=== PATIENT | male | born 1995 | race African-American/Black ===

== ENCOUNTER → 2020-02-10 | Outpatient (REF) | payer OTHER | LOC: M LAB REF 22:25 | PROVIDERS: ATTEND Physician Assistant Medical | DX: R05 Cough (principal) ==

== ENCOUNTER 2021-01-05 22:26 | Emergency (ER) | payer OTHER ==
[~2021-01-05] VITALS: Ht 185.4 cm; Wt 170.4 kg
[2021-01-05 22:27] VITALS: BP 152/77
[2021-01-05] MEDS ORDERED: ACET-841 PO (22:36)
[2021-01-05] MEDS ORDERED: KETOROLAC 30 MG/ML 1ML VIAL IM ONE (23:00)
[2021-01-05] MEDS ORDERED: KETO10TAB PO (23:34)
[2021-01-05] MEDS ORDERED: CYCL-707 PO (23:34)
== END 2021-01-05 23:38 | disposition home or self-care (01) ==
LOC: M ED 22:26
DX: S39.012A Strain of muscle, fascia and tendon of lower back, initial encounter (principal); X58.XXXA Exposure to other specified factors, initial encounter; Y92.018 Other place in single-family (private) house as the place of occurrence of the external cause
CPT/HCPCS: 96372; 99282; J1885

== ENCOUNTER → 2021-02-20 | Outpatient (REF) ==
[~2021-02-20] MED LIST: ACET-841 PO; CYCL-707 PO; KETO10TAB PO
== END ==
LOC: M LABSMTC 13:36
PROVIDERS: ATTEND Pediatrics
DX: Z11.52 Encounter for screening for COVID-19 (principal)

== ENCOUNTER 2021-06-23 08:35 | Inpatient (IN) | payer OTHER ==
[~2021-06-23] VITALS: Ht 188 cm; Wt 168.0 kg
[2021-06-23] MEDS ORDERED: ACETAMINOPHEN 325 MG TAB PO ONE (10:00)
[2021-06-23] MEDS ORDERED: NS 1,000 ML IV ONE (10:10)
[2021-06-23 10:27] LABS: RSV AMPLIFICATION NEGATIVE (NEGATIVE)
--- NOTE | 2021-06-23 10:33 | REP ---
INDICATION: Coronavirus workup. COMPARISON: None. TECHNIQUE: Upright AP portable chest image was obtained. FINDINGS: There is bilateral peribronchial and peripheral airspace consolidation, consistent with COVID related pneumonia. There are no pleural effusions. The heart borders and mediastinum are normal. IMPRESSION: Appearance consistent with viral pneumonia, COVID related pneumonia not excluded. <Electronically signed by Chas Collado > 06/23/21 102
[2021-06-23] MEDS ORDERED: HOME MED LIST COMPLETE! XX SCH (10:35)
[2021-06-23 11:32] LABS: BASO % 0.3 % (0.0-1.0); HEMATOCRIT 47.9 % (42.0-52.0); LYMPH # 0.6 10^3/uL (1.5-5.0); LYMPH % 16.8 % (24.0-44.0); MEAN CORPUSCULAR HEMOGLOBIN 27.2 pg (27.0-33.0); MEAN CORPUSCULAR HGB CONC 33.4 g/dl (32.0-36.5); MEAN CORPUSCULAR VOLUME 81.3 fl (80.0-96.0); MONO # 0.2 10^3/uL (0.0-0.8); MONO % 6.7 % (2.0-8.0); NEUTROPHILS # 2.7 10^3/uL (1.5-8.5); NEUTROPHILS % 75.9 % (36.0-66.0); PLATELET COUNT, AUTOMATED 158 10^3/uL (150-450); RED BLOOD COUNT 5.89 10^6/uL (4.30-6.10); WHITE BLOOD COUNT 3.6 10^3/uL (4.0-10.0)
[2021-06-23 11:44] LABS: INR 1.02; PROTHROMBIN TIME 13.8 SECONDS (12.7-14.5)
[2021-06-23 11:48] LABS: D-DIMER QUANT 1168.77 ng/ml (<500)
[2021-06-23 12:57] LABS: ALBUMIN 3.2 GM/DL (3.2-5.2); ALT/SGPT 131 U/L (12-78); BILIRUBIN,TOTAL 0.6 MG/DL (0.2-1.0); BLOOD UREA NITROGEN 11 MG/DL (7-18); C REACTIVE PROTEIN QUANTITATIV 5.15 MG/DL (0.00-0.30); CALCIUM LEVEL 8.2 MG/DL (8.5-10.1); CARBON DIOXIDE LEVEL 24 MEQ/L (21-32); CHLORIDE LEVEL 102 MEQ/L (98-107); CK-MB VALUE MASS < 1.0 NG/ML (<3.6); CPK CREATINE PHOSPHOKINASE 677 U/L (39-308); CREATININE FOR GFR 1.06 MG/DL (0.70-1.30); FERRITIN 2847 NG/ML (26-388); GLOMERULAR FILTRATION RATE > 60.0 (>60); GLUCOSE, FASTING 132 MG/DL (70-100); LDH LACTATE DEHYDROGENASE 773 U/L (87-241); MAGNESIUM LEVEL 2.2 MG/DL (1.8-2.4); MB/CK RELATIVE INDEX 0.15 (< OR =4); POTASSIUM SERUM 3.5 MEQ/L (3.5-5.1); SODIUM LEVEL 134 MEQ/L (136-145); TOTAL PROTEIN 7.3 GM/DL (6.4-8.2); TROPONIN I < 0.02 NG/ML (< 0.10)
[2021-06-23] MEDS ORDERED: IBUPROFEN 800 MG TAB PO ONE (13:25)
[2021-06-23] MEDS ORDERED: ISOVUE-370 76% 100ML VIAL As Ordered ONE (14:30)
--- NOTE | 2021-06-23 15:14 | REP ---
INDICATION: sob, covid. COMPARISON: Chest radiograph today. TECHNIQUE: CT angiogram chest performed following the intravenous administration of 100 cc of Isovue 370. Sagittal and coronal reconstruction images are performed. FINDINGS: Lungs: Scattered patchy infiltrates are seen diffusely bilaterally. Mediastinum: No adenopathy. Pulmonary arteries: No gross evidence of pulmonary embolism. Evaluation for pulmonary emboli is limited due to patient motion. Chioma: No adenopathy. Axilla: No adenopathy. Pleura: No effusion. Heart: Not enlarged. Thoracic aorta: No aneurysm or dissection. Upper abdominal structures: Unremarkable. Visualized osseous structures: Unremarkable. IMPRESSION: No definite CT evidence of pulmonary embolism. Evaluation for pulmonary emboli is limited due to patient motion. Diffuse patchy bilateral infiltrates. <Electronically signed by Billy Lacy > 06/23/21 [id number]
[2021-06-23] MEDS: NS 1,000 ML IV SCH ×2 (18:09→21:07)
[2021-06-23] MEDS: dexameTHASONE 4 MG/ML 1ML VIAL (J1100 PER 1MG) IV SCH (18:09)
[2021-06-23 19:02] LABS: CREATININE FOR GFR 1.04 MG/DL (0.70-1.30); GLOMERULAR FILTRATION RATE > 60.0 (>60)
--- NOTE | 2021-06-23 19:23 | HPEPDOC ---
General Date of Admission Jun 23, 2021 at 16:56 Date of Service: Jun 23, 2021 Other Providers No PCP Attending Physician: Shane Raphael MD Chief Complaint The patient is a 25-year-old male admitted with a reason for visit of COVID. Source: Patient History of Present Illness 2 weeks ago his girlfriend, whom he lives with, was found to be COVID positive. It sounds as if she had a relatively benign course. About a week ago he started to have clear rhinorrhea and a loss of his sense of taste. He went on to have diarrhea chills and more recently he has been short of breath and has dizziness when he stands. As these symptoms are progressive he came to the emergency room department for further evaluation and treatment. Relevantly, his mother of COVID-19 about 4 months ago in February 2021. He has not been vaccinated. Home Medications Scheduled PRN Acetaminophen (Acetaminophen) 500 Mg Tablet, 1,000 MG PO Q6H PRN for FEVER, (Reported) Allergies Coded Allergies: No Known Allergies (Unverified , 01/05/21) Past Medical History Medical History Morbid obesity, no other known other known medical problems Surgical History ACL repair of his left knee (2008) Family History He does not know much about his father's health. His mother of COVID-19 in February 2021 she was known to have multiple other comorbid medical conditions. He has a brother with no known medical problems. He has 4 sisters with no known medical problems. He has 3 daughters with no known medical problems. Social History * Smoker: Denies Alcohol: Denies He graduated high school. 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 He has to go up and down stairs between the bedroom and bathroom in his house. A-FIB/CHADSVASC A-FIB History Current/History of A-Fib/PAF?: No Current PO Anticoag Therapy: No Review of Systems Constitutional: Reports: Chills, Fever, Malaise ENT: Reports: Head Aches; Denies: Ear Pain, Dysphagia Skin: Denies: Rash, Lesions Pulmonary: Reports: Dyspnea; Denies: Cough Cardiovascular: Denies: Chest Pain, Palpitations, Orthopnea, Edema Gastrointestinal: Reports: Nausea, Vomiting, Diarrhea; Denies: Abdominal Pain, Melena, Hematochezia Genitourinary: Denies: Dysuria, Hematuria Hematologic: Denies: Bruising, Bleeding Excessively, Enlarged Lymph Nodes Endocrine: Denies: Polydipsia, Polyphagia, Polyuria, Heat Intolerance, Cold Intolerance Neurological: Denies: Weakness, Numbness, Change in speech, Confusion Psych: Reports: Anxiety (given the fact that his mother of this 4 months ago); Denies: Depression, Memory Issues Physical Examination General Exam: Positive: Alert, Cooperative (laying in the ER stretcher when I entered the room), No Acute Distress (he appears unwell but is not in distress) Eye Exam: Positive: PERRLA, Conjunctiva & lids normal, EOMI; Negative: Sclera icteric ENT Exam: Positive: Atraumatic, Mucous membr. moist/pink, Pharynx Normal, Tongue Midline Neck Exam: Positive: Supple; Negative: Lymphadenopathy Chest Exam: Positive: Normal air movement, Rales (very few occasional crackles noted throughout the posterior lung lowry); Negative: Wheezing Heart Exam: Positive: Tachycardic, Regular Rhythm, Normal S1, Normal S2; Negative: Murmurs, Rubs Telemetry: Positive: Tachycardia (sinus tach at a rate of [id number]) Abdomen Exam: Positive: Normal bowel sounds, Soft, Other (abdomen is obese which limits the examination); Negative: Tenderness, Hepatospenomegaly Extremity Exam: Positive: Normal pulses; Negative: Edema Skin Exam: Positive: Nl turgor and temperature; Negative: Lesion Neuro Exam: Positive: Normal Speech, Normal Tone Psych Exam: Positive: Mental status NL, Anxiety, Oriented x [address] angiogram of the chest IMPRESSION: No definite CT evidence of pulmonary embolism. Evaluation for pulmonary emboli is limited due to patient motion. Diffuse patchy bilateral infiltrates. Vital Signs Vital Signs Date Time Temp Pulse Resp B/P (MAP) Pulse Ox O2 Delivery O2 Flow Rate FiO2 06/23/21 18:17 99.9 151 18 124/72 (89) 91 Room Air Laboratory Data Labs 24H Laboratory Tests 2 06/23/21 09:41: Coronavirus (COVID-19)(PCR) POSITIVEA, Influenza Type A (RT-PCR) NEGATIVE, Influenza Type B (RT-PCR) NEGATIVE, Respiratory Syncytial Virus (PCR) NEGATIVE 06/23/21 10:38: POC pH (Misc Panel) 7.485H, POC Base Excess (Misc Panel) 0.0, POC Saturated Perc ent O2 (Misc) 94L, POC pO2 (Misc Panel) 65.0L, POC pCO2 (Misc Panel) 31.0L, POC HCO3 (Misc Panel) 23.4, POC Total CO2 (Misc Panel) 24.0 06/23/21 11:16: Immature Granulocyte % (Auto) 0.3, Neutrophils (%) (Auto) 75.9H, Lymphocytes (%) (Auto) 16.8L, Monocytes (%) (Auto) 6.7, Eosinophils (%) (Auto) 0.0, Basophils (%) (Auto) 0.3, Neutrophils # (Auto) 2.7, Lymphocytes # (Auto) 0.6L, Monocytes # (Auto) 0.2, Eosinophils # (Auto) 0.0, Basophils # (Auto) 0.0, Nucleated Red Blood Cells % (auto) 0.0, Prothrombin Time 13.8, Prothromb Time International Ratio 1.02, Activated Partial Thromboplast Time 34.0, Fibrinogen 489H, D-Dimer, Quantitative 1168.77H, Anion Gap 8, Glomerular Filtration Rate > 60.0, Lactic Acid Level 1.0, Calcium Level 8.2L, Magnesium Level 2.2, Ferritin 2847H, Total Bilirubin 0.6, Aspartate Amino Transf (AST/SGOT) 157H, Alanine Aminotransferase (ALT/SGPT) 131H, Alkaline Phosphatase 51, Lactate Dehydrogenase 773H, Total Creatine Kinase 677H, Creatine Kinase MB < 1.0, Creatine Kinase MB Relative Index 0.15, Troponin I < 0.02, C-Reactive Protein, Quantitative 5.15H, Total Protein 7.3, Albumin 3.2, Albumin/Globulin Ratio 0.8, Procalcitonin 0.54 06/23/21 18:32: D-Dimer, Quantitative 1426.58H, Glomerular Filtration Rate > 60.0 CBC/BMP Laboratory Tests 06/23/21 11:16 06/23/21 18:32 Microbiology Microbiology 06/23/21 Blood Culture, Received Pending 06/23/21 Blood Culture, Received Pending Problems (1) COVID Status: Acute Problem Text: I will admit him to the COVID floor using the COVID protocol. I've prescribed remdesivir and dexamethasone. We'll monitor with labs per the COVID protocol. (2) Tachycardia Status: Acute Problem Text: Initially I was concerned about his tachycardia. I thought it may indicate an underlying problem like a pulmonary embolism. Since that is negative on CT angiogram, I believe it tachycardia as a combination of: dehydration related to diarrhea and poor intake, physical deconditioning, and anxiety about his clinical situation given the fact that his mother of this 4 months ago. I am giving him IV hydration. We will continue to monitor. Plan / VTE VTE Prophylaxis Ordered?: Yes Plan Plan He identifies his girlfriend, Clara Singh, as his alternate decision maker should he be unable to make his own medical decisions. He wishes to be FULL CODE at this time. Shane Raphael MD Jun 23, 2021 7:23 pm
[2021-06-23 19:35] VITALS: BP 125/81
--- NOTE | 2021-06-23 19:56 | ECGEPIP ---
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
[2021-06-23] MEDS ORDERED: REMDESIVIR 200 MG in NS 250 ML IV ONE (20:00)
[2021-06-23] MEDS: ENOXAPARIN 100MG/1ML SYRINGE (J1650 PER 10MG) SC SCH (21:06)
[2021-06-23] MEDS ORDERED: SODIUM CHLORIDE 0.9% INJ 10 ML SYR IV ONE (22:01)
[2021-06-23 22:19] VITALS: O2SAT 92
[2021-06-24] VITALS (9 sets, daily range): BP systolic 110–143; BP diastolic 60–87; O2SAT 90–93
[2021-06-24] MEDS: ACETAMINOPHEN 500 MG TAB PO PRN ×3 (02:44→20:01)
[2021-06-24] MEDS: NS 1,000 ML IV SCH (06:09)
[2021-06-24 08:15] LABS: HEMATOCRIT 45.2 % (42.0-52.0); HEMOGLOBIN 14.9 g/dl (13.5-17.5); MEAN CORPUSCULAR HEMOGLOBIN 27.2 pg (27.0-33.0); MEAN CORPUSCULAR VOLUME 82.5 fl (80.0-96.0); PLATELET COUNT, AUTOMATED 179 10^3/uL (150-450); RED BLOOD COUNT 5.48 10^6/uL (4.30-6.10); WHITE BLOOD COUNT 3.4 10^3/uL (4.0-10.0)
[2021-06-24] MEDS: ENOXAPARIN 100MG/1ML SYRINGE (J1650 PER 10MG) SC SCH ×2 (08:19→19:56)
[2021-06-24] MEDS: ASPIRIN 81MG ENTERIC TABLET PO SCH (08:19)
[2021-06-24 08:44] LABS: ALBUMIN 2.9 GM/DL (3.2-5.2); ALT/SGPT 120 U/L (12-78); BILIRUBIN,DIRECT 0.2 MG/DL (0.0-0.2); BILIRUBIN,TOTAL 0.4 MG/DL (0.2-1.0); BLOOD UREA NITROGEN 11 MG/DL (7-18); CARBON DIOXIDE LEVEL 25 MEQ/L (21-32); CHLORIDE LEVEL 104 MEQ/L (98-107); GLOMERULAR FILTRATION RATE > 60.0 (>60); GLUCOSE, FASTING 131 MG/DL (70-100); MAGNESIUM LEVEL 1.9 MG/DL (1.8-2.4); POTASSIUM SERUM 3.6 MEQ/L (3.5-5.1); SODIUM LEVEL 140 MEQ/L (136-145); TOTAL PROTEIN 6.8 GM/DL (6.4-8.2)
[2021-06-24 09:07] LABS: ATYPICAL LYMPH 5 % (0-5); LYMPHOCYTES 22 % (16-44); MONOCYTES 3 % (0-5); NEUTROPHILS 70 % (28-66)
[2021-06-24 09:08] LABS: PLATELET ESTIMATE NORMAL (NORMAL)
[2021-06-24] MEDS: cefTRIAXone SOD 2 GM in D5W MINI-BAG PLUS 50 ML IV SCH (12:20)
[2021-06-24] MEDS: LACTOBACILLUS ACIDOPHILUS CAP (BACID) PO SCH ×2 (13:04→17:35)
--- NOTE | 2021-06-24 13:21 | IPN ---
PROGRESS NOTE DATE: 06/24/2021 Patient denies any shortness of breath, dyspnea on exertion, chest pain, pressure, or tightness, nausea, vomiting, anosmia, dysacusia, abdominal pain, diarrhea, constipation. Despite tachycardia and low-grade temperature, patient denies any dizziness, lightheadedness, cough productive of sputum. Temperature 99.8, maximum temperature 100.4, respiratory rate 19, blood pressure 143/83, 89% on room air. GENERAL: Awake, alert, oriented to person, place, and time. No distress. LUNGS: Diminished with bilateral crackles. No wheezing. Air entry is diminished. HEART: S1, S2, sinus tachycardia. ABDOMEN: Obese, soft, nontender, nondistended. EXTREMITIES: No cyanosis, clubbing, or pitting edema. LABORATORY DATA: CBC, metabolic panel, microbiology, and imaging studies have been reviewed. ASSESSMENT AND PLAN: A 25-year-old obese male with body mass index (BMI) 48.5, admitted on 06/23/2021 due to complaints of diarrhea, chills, and shortness of breath with dizziness when he stands. Patient was found to be positive for coronavirus and treated with intravenous (IV) remdesivir, Decadron, Lovenox. CT chest showed bilateral infiltrates with persistent low-grade temperature is 100.4, procalcitonin of 0.5. Patient is now being given secondary bacterial coverage with antibiotics. CURRENT ISSUES: Coronavirus positive/pneumonia. Patient is continued on Decadron, remdesivir, supplemental oxygen to keep saturations above 90%, aspirin 81 mg daily, and Lovenox 1 mg/kg subcutaneous every 12. Intravenous (IV) fluids will be discontinue due to persistent hypoxia and bilateral infiltrates on x-ray to keep euvolemic. Due to procalcitonin of 0.5, patient will be given antibiotics, ceftriaxone, doxycycline, as well as Bacid. MTDD
[2021-06-24] MEDS: DOXYCYCLINE HYCLATE 100 MG in D5W MINI-BAG PLUS 100 ML IV SCH (14:05)
[2021-06-24] MEDS: dexameTHASONE 4 MG/ML 1ML VIAL (J1100 PER 1MG) IV SCH (17:34)
[2021-06-24] MEDS ORDERED: KETOROLAC 30 MG/ML 1ML VIAL IV ONE (18:15)
[2021-06-24] MEDS ORDERED: NS 1,000 ML IV SCH (19:45)
[2021-06-24] MEDS: REMDESIVIR 100 MG in NS 250 ML IV SCH (19:55)
[2021-06-24] MEDS: SODIUM CHLORIDE 0.9% INJ 10 ML SYR IV SCH (20:02)
[2021-06-25] VITALS (8 sets, daily range): BP systolic 108–134; BP diastolic 64–82; O2SAT 92–98
[2021-06-25] MEDS: DOXYCYCLINE HYCLATE 100 MG in D5W MINI-BAG PLUS 100 ML IV SCH ×2 (02:19→13:03)
[2021-06-25 07:36] LABS: HEMATOCRIT 44.8 % (42.0-52.0); MEAN CORPUSCULAR HEMOGLOBIN 27.5 pg (27.0-33.0); MEAN CORPUSCULAR HGB CONC 33.5 g/dl (32.0-36.5); MEAN CORPUSCULAR VOLUME 82.2 fl (80.0-96.0); PLATELET COUNT, AUTOMATED 214 10^3/uL (150-450); RED BLOOD COUNT 5.45 10^6/uL (4.30-6.10); WHITE BLOOD COUNT 3.8 10^3/uL (4.0-10.0)
[2021-06-25 07:38] LABS: INR 1.03; PROTHROMBIN TIME 13.9 SECONDS (12.7-14.5)
[2021-06-25 07:39] LABS: PARTIAL THROMBOPLASTIN TIME 39.4 SECONDS (25.9-37.0)
[2021-06-25 08:12] LABS: ALBUMIN 2.7 GM/DL (3.2-5.2); ALT/SGPT 109 U/L (12-78); BILIRUBIN,DIRECT 0.2 MG/DL (0.0-0.2); BILIRUBIN,TOTAL 0.5 MG/DL (0.2-1.0); BLOOD UREA NITROGEN 12 MG/DL (7-18); CALCIUM LEVEL 8.1 MG/DL (8.5-10.1); CARBON DIOXIDE LEVEL 25 MEQ/L (21-32); CHLORIDE LEVEL 106 MEQ/L (98-107); CPK CREATINE PHOSPHOKINASE 555 U/L (39-308); CREATININE FOR GFR 0.74 MG/DL (0.70-1.30); FERRITIN 3223 NG/ML (26-388); GLOMERULAR FILTRATION RATE > 60.0 (>60); GLUCOSE, FASTING 146 MG/DL (70-100); LDH LACTATE DEHYDROGENASE 1000 U/L (87-241); MAGNESIUM LEVEL 2.2 MG/DL (1.8-2.4); NT-PRO BNP 32 PG/ML (<125); POTASSIUM SERUM 3.5 MEQ/L (3.5-5.1); SODIUM LEVEL 140 MEQ/L (136-145); TROPONIN I < 0.02 NG/ML (< 0.10)
[2021-06-25 08:24] LABS: ATYPICAL LYMPH 1 % (0-5); LYMPHOCYTES 22 % (16-44); MONOCYTES 6 % (0-5); NEUTROPHILS 71 % (28-66)
[2021-06-25 08:25] LABS: PLATELET ESTIMATE NORMAL (NORMAL)
[2021-06-25] MEDS: ASPIRIN 81MG ENTERIC TABLET PO SCH (09:41)
[2021-06-25] MEDS: ENOXAPARIN 100MG/1ML SYRINGE (J1650 PER 10MG) SC SCH ×2 (09:41→20:28)
[2021-06-25] MEDS: LACTOBACILLUS ACIDOPHILUS CAP (BACID) PO SCH ×3 (09:41→17:54)
--- NOTE | 2021-06-25 09:43 | IPNPDOC ---
Date Seen The patient was seen on 06/25/21. Progress Note S; C/O BUSTAMANTE, Febrile yesterday, w/o cough or chlils. Patient denies any chest pain, pressure, or tightness, nausea, vomiting, anosmia, dysacusia, abdominal pain, or , constipation. O: PE Vitals: see below GENERAL: Awake, alert, oriented to person, place, and time. No distress. speaks in full sentences w/o conversational dyspnea HEENT: no jvd moist mm no thyromegaly or jvd LUNGS: Diminished with bilateral crackles. no use of respiratory accessory mm HEART: S1, S2, sinus tachycardia. ABDOMEN: Obese, soft, nontender, nondistended. EXTREMITIES: No cyanosis, clubbing, or pitting edema. LABORATORY DATA: CBC, metabolic panel, microbiology, and imaging studies have been reviewed. ASSESSMENT AND PLAN: A 25-year-old obese male with body mass index (BMI) 48.5, admitted on 06/23/2021 due to complaints of diarrhea, chills, and shortness of breath with dizziness when he stands. Patient was found to be positive for coronavirus and treated with intravenous (IV) remdesivir, Decadron, Lovenox. CT chest showed bilateral infiltrates with persistent low-grade temperature is 100.4, procalcitonin of 0.5. Patient is now being given secondary bacterial coverage with antibiotics. CURRENT ISSUES: Coronavirus pneumonia. continued on Decadron, remdesivir, supplemental oxygen to keep saturations above 90%, aspirin 81 mg daily, and Lovenox 1 mg/kg subcutaneous every 12. Intravenous (IV) fluids will be discontinue due to persistent hypoxia and bilateral infiltrates on x-ray to keep euvolemic. Suspected Secondary Bacterial pneumonia Due to procalcitonin of 0.5, pt was started on ceftriaxone, doxycycline, as well as Bacid on 06/24/21 day# abx Respiratory distress supplemental o2. . VS, I&O, 24H, Fishbone Vital Signs/I&O Vital Signs Date Time Temp Pulse Resp B/P (MAP) Pulse Ox O2 Delivery O2 Flow Rate FiO2 06/25/21 07:31 99.5 117 19 130/76 (94) 96 Nasal Cannula 1.0 I&O- Last 24 Hours up to 6 AM 06/25/21 06:00 Intake Total 3680 ml Output Total 775 ml Balance 2905 ml Laboratory Data 24H LABS Laboratory Tests 2 06/25/21 06:55: Neutrophils (%) (Auto) , Nucleated Red Blood Cells % (auto) 0.0, Neutrophils 71H, Lymphocytes (Manual) 22, Monocytes (Manual) 6H, Atypical Lymphocytes 1, Red Blood Cell Morphology NORMAL, Platelet Estimate NORMAL, Prothrombin Time 13.9, Prothromb Time International Ratio 1.03, Activated Partial Thromboplast Time 39.4H, Fibrinogen 477H, Anion Gap 9, Glomerular Filtration Rate > 60.0, Calcium Level 8.1L, Magnesium Level 2.2, Ferritin 3223H, Total Bilirubin 0.5, Direct Bilirubin 0.2, Aspartate Amino Transf (AST/SGOT) 124H, Alanine Aminotransferase (ALT/SGPT) 109H, Alkaline Phosphatase 46, Lactate Dehydrogenase 1000H, Total Creatine Kinase 555H, Troponin I < 0.02, VS-Ekx-Y-Type Natriuretic Peptide 32, Total Protein 7.0, Albumin 2.7L, Albumin/Globulin Ratio 0.6, Procalcitonin 1.14 CBC/BMP Laboratory Tests 06/25/21 06:55 Microbiology Microbiology 06/23/21 Urine Culture - Final, Complete 06/23/21 Blood Culture - Preliminary, Resulted No growth after 24 hours . All specim... 06/23/21 Blood Culture - Preliminary, Resulted No growth after 24 hours . All specim... RANDY WOODARD MD Jun 25, 2021 09:43
[2021-06-25] MEDS: cefTRIAXone SOD 2 GM in D5W MINI-BAG PLUS 50 ML IV SCH (12:11)
[2021-06-25 14:50] LABS: THYROID STIMULATING HORMONE 0.416 uIU/ML (0.358-3.740)
[2021-06-25] MEDS: ACETAMINOPHEN 500 MG TAB PO PRN (16:33)
[2021-06-25] MEDS: dexameTHASONE 4 MG/ML 1ML VIAL (J1100 PER 1MG) IV SCH (17:54)
[2021-06-25] MEDS: REMDESIVIR 100 MG in NS 250 ML IV SCH (20:28)
[2021-06-25] MEDS ORDERED: NS 1,000 ML IV SCH (20:40)
[2021-06-25 21:44] LABS: MAGNESIUM LEVEL 1.8 MG/DL (1.8-2.4); NT-PRO BNP 26 PG/ML (<125)
[2021-06-25] MEDS: SODIUM CHLORIDE 0.9% INJ 10 ML SYR IV SCH (22:27)
[2021-06-26] VITALS (7 sets, daily range): BP systolic 129–141; BP diastolic 68–86; O2SAT 84–99
[2021-06-26] MEDS: DOXYCYCLINE HYCLATE 100 MG in D5W MINI-BAG PLUS 100 ML IV SCH ×2 (00:17→14:47)
[2021-06-26] MEDS: COMBIVENT RESPIMAT 100-20MCG INHALER 4GM INH PRN ×2 (03:48→08:59)
--- NOTE | 2021-06-26 06:03 | ECGEPIP ---
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
[2021-06-26 06:06] LABS: BASO % 0.2 % (0.0-1.0); HEMATOCRIT 44.9 % (42.0-52.0); HEMOGLOBIN 14.8 g/dl (13.5-17.5); LYMPH # 0.9 10^3/uL (1.5-5.0); LYMPH % 23.1 % (24.0-44.0); MEAN CORPUSCULAR HEMOGLOBIN 27.2 pg (27.0-33.0); MEAN CORPUSCULAR VOLUME 82.5 fl (80.0-96.0); MONO # 0.3 10^3/uL (0.0-0.8); MONO % 7.9 % (2.0-8.0); NEUTROPHILS # 2.8 10^3/uL (1.5-8.5); NEUTROPHILS % 67.8 % (36.0-66.0); PLATELET COUNT, AUTOMATED 161 10^3/uL (150-450); RED BLOOD COUNT 5.44 10^6/uL (4.30-6.10); WHITE BLOOD COUNT 4.1 10^3/uL (4.0-10.0)
[2021-06-26 06:25] LABS: BLOOD UREA NITROGEN 12 MG/DL (7-18); CARBON DIOXIDE LEVEL 27 MEQ/L (21-32); CHLORIDE LEVEL 107 MEQ/L (98-107); CREATININE FOR GFR 0.76 MG/DL (0.70-1.30); GLOMERULAR FILTRATION RATE > 60.0 (>60); GLUCOSE, FASTING 155 MG/DL (70-100); MAGNESIUM LEVEL 2.1 MG/DL (1.8-2.4); POTASSIUM SERUM 3.7 MEQ/L (3.5-5.1); SODIUM LEVEL 141 MEQ/L (136-145)
[2021-06-26] MEDS: ENOXAPARIN 100MG/1ML SYRINGE (J1650 PER 10MG) SC SCH ×2 (08:54→21:25)
[2021-06-26] MEDS: LACTOBACILLUS ACIDOPHILUS CAP (BACID) PO SCH ×3 (08:54→18:24)
[2021-06-26] MEDS: ASPIRIN 81MG ENTERIC TABLET PO SCH (08:54)
[2021-06-26] MEDS: cefTRIAXone SOD 2 GM in D5W MINI-BAG PLUS 50 ML IV SCH (11:53)
--- NOTE | 2021-06-26 12:26 | IPNPDOC ---
Date Seen The patient was seen on 06/26/21. Progress Note S; Patient was tachycardic 140 to 160 bpm with ambulation yesterday with worsening dyspnea on exertion. This morning patient's oxygen saturation decreased down to 86% on 2 L nasal cannula had to be subsequently increased to 5 L nasal cannula he complains of worsening shortness of breath with dry cough O: PE Vitals: see below GENERAL: Awake, alert, oriented to person, place, and time. 8-10 word conversational dyspnea head of bed elevation at 45 degrees HEENT: no jvd moist mm no thyromegaly or jvd LUNGS: Diminished breath sounds with coarse rhonchi bilaterally HEART: S1, S2, sinus tachycardia. ABDOMEN: Obese, soft, nontender, nondistended. EXTREMITIES: No cyanosis, clubbing, or pitting edema. LABORATORY DATA: CBC, metabolic panel, microbiology, and imaging studies have been reviewed. ASSESSMENT AND PLAN: A 25-year-old obese male with body mass index (BMI) 48.5, admitted on 06/23/2021 due to complaints of diarrhea, chills, and shortness of breath with dizziness when he stands. Patient was found to be positive for coronavirus and treated with intravenous (IV) remdesivir, Decadron, Lovenox. CT chest showed bilateral infiltrates with persistent low-grade temperature is 100.4, procalcitonin of 0.5. Patient is now being given secondary bacterial coverage with antibiotics. Acute hypoxic respiratory failure secondary to coronavirus pneumonia and suspected secondary bacterial pneumonia with elevated procalcitonin continued on Decadron, remdesivir, ceftriaxone and doxycycline supplemental oxygen to keep oxygen saturation greater than 94% aspirin 81 mg daily, and Lovenox 1 mg/kg subcutaneous every 12hr Check a stat ABG and chest x-ray to rule out ARDS We had discussed possibility of ICU transfer, Vapotherm, Legal Entity Controller consultation, and prone positioning if needed Continue droplet and contact isolation precautions Coronavirus pneumonia with hypoxia continued on Decadron, remdesivir supplemental oxygen to keep oxygen saturation greater than 94% aspirin 81 mg daily, and Lovenox 1 mg/kg subcutaneous every 12hr Suspected Secondary Bacterial pneumonia Due to procalcitonin of 0.5, pt was started on ceftriaxone, doxycycline, as well as Bacid on 06/24/21 With worsening hypoxia today concerning for early ARDS Obesity BMI 47.8 Check arterial blood gas. URMILA protocol VS, I&O, 24H, Fishbone Vital Signs/I&O Vital Signs Date Time Temp Pulse Resp B/P (MAP) Pulse Ox O2 Delivery O2 Flow Rate FiO2 06/26/21 08:00 98.9 122 20 134/86 (102) 84 High Flow Cannula 8.0 I&O- Last 24 Hours up to 6 AM 06/26/21 06:00 Intake Total 1610 ml Output Total 1750 ml Balance -140 ml Laboratory Data 24H LABS Laboratory Tests 2 06/26/21 05:42: Immature Granulocyte % (Auto) 1.0, Neutrophils (%) (Auto) 67.8H, Lymphocytes (%) (Auto) 23.1L, Monocytes (%) (Auto) 7.9, Eosinophils (%) (Auto) 0.0, Basophils (%) (Auto) 0.2, Neutrophils # (Auto) 2.8, Lymphocytes # (Auto) 0.9L, Monocytes # (Auto) 0.3, Eosinophils # (Auto) 0.0, Basophils # (Auto) 0.0, Nucleated Red Blood Cells % (auto) 0.0, Anion Gap 7L, Glomerular Filtration Rate > 60.0, Calcium Level 8.0L, Magnesium Level 2.1 CBC/BMP Laboratory Tests 06/26/21 05:42 Microbiology Microbiology 06/23/21 Urine Culture - Final, Complete 06/23/21 Blood Culture - Preliminary, Resulted No Growth after 72 hours. All specime... 06/23/21 Blood Culture - Preliminary, Resulted No Growth after 72 hours. All specime... RANDY WOODARD MD Jun 26, 2021 12:26
[2021-06-26] MEDS ORDERED: FUROSEMIDE 40MG/4ML VIAL (J1940) IV ONE (12:40)
--- NOTE | 2021-06-26 12:50 | REP ---
INDICATION: hypoxia covid pneumonia r/o ards. COMPARISON: 06/23/2021. TECHNIQUE: Single portable AP view of the chest was performed. FINDINGS: Diffuse bilateral infiltrates are again noted, essentially unchanged. Lung volumes are mildly diminished compared to the prior study. The heart and mediastinum appear unchanged. IMPRESSION: Diffuse bilateral infiltrates have not significantly changed. There is a lesser degree of ventilation compared to the prior study. <Electronically signed by Billy Lacy > 06/26/21 1973
[2021-06-26 13:24] LABS: D-DIMER QUANT 825.8 ng/ml (<500)
[2021-06-26 13:30] LABS: VENOUS BASE EXCESS -0.1 (-2.0-2.0); VENOUS HCO3 22.7 MEQ/L (23.0-27.0); VENOUS O2 SATURATION 90.6 % (60.0-80.0); VENOUS PARTIAL PRESSURE CO2 32.2 mmHg (38.0-50.0); VENOUS PARTIAL PRESSURE O2 56.3 mmHg (30.0-50.0); VENOUS PH 7.466 UNITS (7.330-7.430); VENOUS STANDARD HCO3 24.2 MEQ/L; VENOUS TOTAL CO2 23.7 MEQ/L (24.0-28.0)
[2021-06-26 13:47] LABS: C REACTIVE PROTEIN QUANTITATIV 4.67 MG/DL (0.00-0.30); CK-MB VALUE MASS < 1.0 NG/ML (<3.6); CPK CREATINE PHOSPHOKINASE 385 U/L (39-308); FERRITIN 2438 NG/ML (26-388); MB/CK RELATIVE INDEX 0.26 (< OR =4); NT-PRO BNP 9 PG/ML (<125); TROPONIN I < 0.02 NG/ML (< 0.10)
[2021-06-26 14:02] LABS: ERYTHROCYTE SEDIMENTATION RATE 22 mm/hr (0-15)
[2021-06-26] MEDS: dexameTHASONE 4 MG/ML 1ML VIAL (J1100 PER 1MG) IV SCH (18:25)
[2021-06-26] MEDS: SODIUM CHLORIDE 0.9% INJ 10 ML SYR IV SCH (21:26)
[2021-06-26] MEDS: REMDESIVIR 100 MG in NS 250 ML IV SCH (21:26)
[2021-06-27] VITALS (8 sets, daily range): BP systolic 129–162; BP diastolic 76–100; O2SAT 94–99
[2021-06-27] MEDS: DOXYCYCLINE HYCLATE 100 MG in D5W MINI-BAG PLUS 100 ML IV SCH (01:54)
[2021-06-27] MEDS: COMBIVENT RESPIMAT 100-20MCG INHALER 4GM INH SCH ×4 (08:07→20:48)
[2021-06-27 08:49] LABS: HEMATOCRIT 47.2 % (42.0-52.0); HEMOGLOBIN 15.5 g/dl (13.5-17.5); MEAN CORPUSCULAR HEMOGLOBIN 27.2 pg (27.0-33.0); MEAN CORPUSCULAR HGB CONC 32.8 g/dl (32.0-36.5); PLATELET COUNT, AUTOMATED 289 10^3/uL (150-450); RED BLOOD COUNT 5.69 10^6/uL (4.30-6.10); WHITE BLOOD COUNT 4.1 10^3/uL (4.0-10.0)
[2021-06-27 09:15] LABS: ERYTHROCYTE SEDIMENTATION RATE 17 mm/hr (0-15)
[2021-06-27 09:28] LABS: ATYPICAL LYMPH 11 % (0-5); LYMPHOCYTES 24 % (16-44); MONOCYTES 2 % (0-5); NEUTROPHILS 63 % (28-66); PLATELET ESTIMATE NORMAL (NORMAL)
[2021-06-27 09:29] LABS: PLATELET CLUMPS SMALL AMT
[2021-06-27 09:35] LABS: ALBUMIN 2.9 GM/DL (3.2-5.2); ALT/SGPT 99 U/L (12-78); BILIRUBIN,DIRECT 0.2 MG/DL (0.0-0.2); BILIRUBIN,TOTAL 0.6 MG/DL (0.2-1.0); BLOOD UREA NITROGEN 18 MG/DL (7-18); C REACTIVE PROTEIN QUANTITATIV 3.11 MG/DL (0.00-0.30); CALCIUM LEVEL 8.6 MG/DL (8.5-10.1); CARBON DIOXIDE LEVEL 28 MEQ/L (21-32); CHLORIDE LEVEL 108 MEQ/L (98-107); CPK CREATINE PHOSPHOKINASE 235 U/L (39-308); CREATININE FOR GFR 0.75 MG/DL (0.70-1.30); FERRITIN 2266 NG/ML (26-388); GLOMERULAR FILTRATION RATE > 60.0 (>60); GLUCOSE, FASTING 143 MG/DL (70-100); INR 1.08; LDH LACTATE DEHYDROGENASE 1077 U/L (87-241); MAGNESIUM LEVEL 2.2 MG/DL (1.8-2.4); NT-PRO BNP 5 PG/ML (<125); POTASSIUM SERUM 3.7 MEQ/L (3.5-5.1); PROTHROMBIN TIME 14.4 SECONDS (12.7-14.5); SODIUM LEVEL 142 MEQ/L (136-145); TROPONIN I < 0.02 NG/ML (< 0.10)
--- NOTE | 2021-06-27 12:01 | IPNPDOC ---
Date Seen The patient was seen on 06/27/21. Progress Note S; Improved oxygen saturation currently room air when the patient is lying down on his stomach he still complains of dyspnea on exertion when going from bed to the bathroom No chest pain fevers or chills Slight cough unchanged No complaints of palpitations lightheadedness or dizziness O: PE Vitals: see below GENERAL: Prone positioning no conversational dyspnea No use of respiratory accessory muscles HEENT: no jvd moist mm no thyromegaly or jvd LUNGS: Diminished breath sounds with coarse rhonchi bilaterally HEART: S1, S2, sinus tachycardia. ABDOMEN: Obese, soft, nontender, nondistended. EXTREMITIES: No cyanosis, clubbing, or pitting edema. LABORATORY DATA: CBC, metabolic panel, microbiology, and imaging studies have been reviewed. ASSESSMENT AND PLAN: A 25-year-old obese male with body mass index (BMI) 48.5, admitted on 06/23/2021 due to complaints of diarrhea, chills, and shortness of breath with dizziness when he stands. Patient was found to be positive for coronavirus and treated with intravenous (IV) remdesivir, Decadron, Lovenox. CT chest showed bilateral infiltrates with persistent low-grade temperature is 100.4, procalcitonin of 0.5. Patient is now being given secondary bacterial coverage with antibiotics. Acute hypoxic respiratory failure, resolving secondary to coronavirus pneumonia and suspected secondary bacterial pneumonia with elevated procalcitonin continued on Decadron, remdesivir, ceftriaxone and doxycycline supplemental oxygen to keep oxygen saturation greater than 94% aspirin 81 mg daily, and Lovenox 1 mg/kg subcutaneous every 12hr ABG unchanged chest x-ray decreased ventilation Improved with prone positioning Now on room air Coronavirus pneumonia with hypoxia continued on Decadron, remdesivir supplemental oxygen to keep oxygen saturation greater than 94% aspirin 81 mg daily, and Lovenox 1 mg/kg subcutaneous every 12hr Suspected Secondary Bacterial pneumonia Due to procalcitonin of 0.5, pt was started on ceftriaxone, doxycycline, as well as Bacid on 06/24/21 Chest x-ray unchanged with decreased ventilation Obesity BMI 47.8 Check arterial blood gas. URMILA protocol Disposition: Since patient is improving currently on room air with prone positioning and 1 dose of Lasix possible discharge in the morning or Wednesday if stable VS, I&O, 24H, Fishbone Vital Signs/I&O Vital Signs Date Time Temp Pulse Resp B/P (MAP) Pulse Ox O2 Delivery O2 Flow Rate FiO2 06/27/21 08:00 99.6 126 22 138/76 (96) 94 Room Air 06/27/21 03:00 2.0 I&O- Last 24 Hours up to 6 AM 06/27/21 06:00 Intake Total 1400 ml Output Total 1250 ml Balance 150 ml Laboratory Data 24H LABS Laboratory Tests 2 06/26/21 13:21: Blood Gas Bicarbonate Standard 24.2, Venous Blood pH 7.466H, Venous Blood Partial Pressure CO2 32.2L, Venous Blood Partial Pressure O2 56.3H, Venous Blood Total Carbon Dioxide 23.7L, Venous Blood HCO3 22.7L, Venous Blood Oxygen Saturation 90.6H, Venous Blood Base Excess -0.1 06/27/21 08:03: Neutrophils (%) (Auto) , Nucleated Red Blood Cells % (auto) 0.0, Neutrophils 63, Lymphocytes (Manual) 24, Monocytes (Manual) 2, Atypical Lymphocytes 11H, Red Blood Cell Morphology NORMAL, Platelet Estimate NORMAL, Clumped Platelets SMALL AMT, Erythrocyte Sedimentation Rate 17H, Prothrombin Time 14.4H, Prothromb Time International Ratio 1.08, Activated Partial Thromboplast Time 34.0, Fibrinogen 508H, Anion Gap 6L, Glomerular Filtration Rate > 60.0, Calcium Level 8.6, Ma gnesium Level 2.2, Ferritin 2266H, Total Bilirubin 0.6, Direct Bilirubin 0.2, Aspartate Amino Transf (AST/SGOT) 87H, Alanine Aminotransferase (ALT/SGPT) 99H, Alkaline Phosphatase 49, Lactate Dehydrogenase 1077H, Total Creatine Kinase 235, Troponin I < 0.02, C-Reactive Protein, Quantitative 3.11H, QI-Cbl-M-Type Natriuretic Peptide 5, Total Protein 7.0, Albumin 2.9L, Albumin/Globulin Ratio 0.7, Procalcitonin 0.37 CBC/BMP Laboratory Tests 06/27/21 08:03 Microbiology Microbiology 06/23/21 Urine Culture - Final, Complete 06/23/21 Blood Culture - Preliminary, Resulted No Growth after 72 hours. All specime... 06/23/21 Blood Culture - Preliminary, Resulted No Growth after 72 hours. All specime... RANDY WOODARD MD Jun 27, 2021 12:01
[2021-06-27] MEDS: LACTOBACILLUS ACIDOPHILUS CAP (BACID) PO SCH ×3 (12:20→18:08)
[2021-06-27] MEDS: ASPIRIN 81MG ENTERIC TABLET PO SCH (12:20)
[2021-06-27] MEDS: cefTRIAXone SOD 2 GM in D5W MINI-BAG PLUS 50 ML IV SCH (12:21)
[2021-06-27] MEDS: ENOXAPARIN 100MG/1ML SYRINGE (J1650 PER 10MG) SC SCH ×2 (12:21→20:55)
[2021-06-27] MEDS: LevoFLOXacin 750 MG TABLET PO SCH (18:08)
[2021-06-27] MEDS: dexameTHASONE 4 MG/ML 1ML VIAL (J1100 PER 1MG) IV SCH (18:08)
[2021-06-27] MEDS: SODIUM CHLORIDE 0.9% INJ 10 ML SYR IV SCH (21:10)
[2021-06-27] MEDS: REMDESIVIR 100 MG in NS 250 ML IV SCH (21:12)
[2021-06-28] VITALS (7 sets, daily range): BP systolic 122–146; BP diastolic 79–92; O2SAT 94–96
[2021-06-28] MEDS: COMBIVENT RESPIMAT 100-20MCG INHALER 4GM INH SCH ×7 (00:36→23:05)
[2021-06-28 07:10] LABS: HEMATOCRIT 46.7 % (42.0-52.0); HEMOGLOBIN 15.3 g/dl (13.5-17.5); MEAN CORPUSCULAR HEMOGLOBIN 27.2 pg (27.0-33.0); MEAN CORPUSCULAR HGB CONC 32.8 g/dl (32.0-36.5); MEAN CORPUSCULAR VOLUME 83.1 fl (80.0-96.0); PLATELET COUNT, AUTOMATED 356 10^3/uL (150-450); RED BLOOD COUNT 5.62 10^6/uL (4.30-6.10); WHITE BLOOD COUNT 4.1 10^3/uL (4.0-10.0)
[2021-06-28 07:34] LABS: BLOOD UREA NITROGEN 20 MG/DL (7-18); CALCIUM LEVEL 8.7 MG/DL (8.5-10.1); CARBON DIOXIDE LEVEL 27 MEQ/L (21-32); CHLORIDE LEVEL 108 MEQ/L (98-107); CREATININE FOR GFR 0.78 MG/DL (0.70-1.30); GLOMERULAR FILTRATION RATE > 60.0 (>60); GLUCOSE, FASTING 138 MG/DL (70-100); MAGNESIUM LEVEL 2.2 MG/DL (1.8-2.4); POTASSIUM SERUM 3.4 MEQ/L (3.5-5.1); SODIUM LEVEL 142 MEQ/L (136-145)
[2021-06-28 07:51] LABS: ATYPICAL LYMPH 3 % (0-5); LYMPHOCYTES 18 % (16-44); METAMYELOCYTES 1 % (0-0); MONOCYTES 7 % (0-5); NEUTROPHILS 68 % (28-66); PLASMA CELL 2 % (0-0)
[2021-06-28 07:54] LABS: PLATELET ESTIMATE NORMAL (NORMAL)
[2021-06-28] MEDS ORDERED: POTASSIUM CHLORIDE 10 MEQ SR TABLET PO ONE (10:00)
--- NOTE | 2021-06-28 10:49 | IPNPDOC ---
Date Seen The patient was seen on 06/28/21. Progress Note S; Patient's oxygen saturation is 94% on room air supine he remains tachycardic but denies any dizziness lightheadedness or dyspnea on exertion when he moves around he is able to walk from bedroom to the bathroom but becomes very tachycardic He denies any anosmia change in appetite dysgeusia chest pain pressure tightness He has had loose bowel movements about 4 times throughout the entire admission not watery. O: PE Vitals: see below GENERAL: Laying on his back appears comfortable with no conversational dyspnea currently on room air No use of respiratory accessory muscles HEENT: no jvd moist mm no thyromegaly or jvd No stridor cervical lymphadenopathy LUNGS: Diminished breath sounds HEART: S1, S2, sinus tachycardia. No murmurs rubs or gallops ABDOMEN: Obese, soft, nontender, nondistended. EXTREMITIES: No cyanosis, clubbing, or pitting edema. LABORATORY DATA: CBC, metabolic panel, microbiology, and imaging studies have been reviewed. ASSESSMENT AND PLAN: A 25-year-old obese male with body mass index (BMI) 48.5, admitted on 06/23/2021 due to complaints of diarrhea, chills, and shortness of breath with dizziness when he stands. Patient was found to be positive for coronavirus and treated with intravenous (IV) remdesivir, Decadron, Lovenox. CT chest showed bilateral infiltrates with persistent low-grade temperature is 100.4, procalcitonin of 0.5. Patient is now being given secondary bacterial coverage with antibiotics. Acute hypoxic respiratory failure, resolving suspected secondary bacterial pneumonia with elevated procalcitonin Coronavirus pneumonia with hypoxia Obesity BMI 47.8 URMILA supplemental oxygen at night PLAN: Patient is to complete 5 days of remdesivir 7 days of antibiotics which has been changed to oral Levaquin Keep O2 sat greater than or equal to 94% May need supplemental oxygen at discharge Continue aspirin Lovenox Discharge plans for either Wednesday or Wednesday pending clinical improvement VS, I&O, 24H, Fishbone Vital Signs/I&O Vital Signs Date Time Temp Pulse Resp B/P (MAP) Pulse Ox O2 Delivery O2 Flow Rate FiO2 06/28/21 08:00 98.5 110 17 141/79 (99) 94 Room Air 06/27/21 03:00 2.0 I&O- Last 24 Hours up to 6 AM 06/28/21 06:00 Intake Total 1530 ml Output Total 1350 ml Balance 180 ml Laboratory Data 24H LABS Laboratory Tests 2 06/28/21 06:29: Neutrophils (%) (Auto) , Nucleated Red Blood Cells % (auto) 0.0, Neutrophils 68H, Band Neutrophils 1, Lymphocytes (Manual) 18, Monocytes (Manual) 7H, Metamyelocytes 1H, Atypical Lymphocytes 3, Plasma Cells 2H, Platelet Estimate NORMAL, Anion Gap 7L, Glomerular Filtration Rate > 60.0, Calcium Level 8.7, Magnesium Level 2.2 CBC/BMP Laboratory Tests 06/28/21 06:29 Microbiology Microbiology 06/23/21 Urine Culture - Final, Complete 06/23/21 Blood Culture - Final, Complete NO GROWTH AFTER 5 DAYS 06/23/21 Blood Culture - Final, Complete NO GROWTH AFTER 5 DAYS RANDY WOODARD MD Jun 28, 2021 10:49
[2021-06-28] MEDS: ENOXAPARIN 100MG/1ML SYRINGE (J1650 PER 10MG) SC SCH ×2 (10:55→21:19)
[2021-06-28] MEDS: LACTOBACILLUS ACIDOPHILUS CAP (BACID) PO SCH ×3 (10:56→17:57)
[2021-06-28] MEDS: ASPIRIN 81MG ENTERIC TABLET PO SCH (10:56)
[2021-06-28] MEDS: LevoFLOXacin 750 MG TABLET PO SCH (17:57)
[2021-06-28] MEDS: dexameTHASONE 4 MG/ML 1ML VIAL (J1100 PER 1MG) IV SCH (17:58)
[2021-06-28] MEDS: SODIUM CHLORIDE 0.9% INJ 10 ML SYR IV SCH (21:00)
[2021-06-29] VITALS: BP 145/89; O2SAT 95
[2021-06-29 04:00] VITALS: BP 136/85
[2021-06-29] MEDS: COMBIVENT RESPIMAT 100-20MCG INHALER 4GM INH SCH ×2 (04:00→07:44)
[2021-06-29 04:23] VITALS: O2SAT 96
[2021-06-29 07:55] VITALS: BP 145/79
[2021-06-29] MEDS ORDERED: ASPI-551 PO (07:57)
[2021-06-29] MEDS ORDERED: RISATAB3 PO (07:57)
[2021-06-29] MEDS ORDERED: PRED10TA2 PO (07:57)
[2021-06-29] MEDS: ENOXAPARIN 100MG/1ML SYRINGE (J1650 PER 10MG) SC SCH (07:57)
[2021-06-29] MEDS: LACTOBACILLUS ACIDOPHILUS CAP (BACID) PO SCH (07:57)
[2021-06-29] MEDS: ASPIRIN 81MG ENTERIC TABLET PO SCH (07:57)
[2021-06-29] MEDS ORDERED: LEVO750T13 PO (07:57)
[2021-06-29] MEDS ORDERED: PROV108A INH (07:57)
[2021-06-29 08:00] VITALS: O2SAT 96
--- NOTE | 2021-06-29 11:07 | DS.PDOC ---
Discharge Summary General Date of Admission Jun 23, 2021 at 16:56 Date of Discharge June 29, 2021 discharge home with home care continue with contact isolation and droplet precautions for a total of 10 days Discharge Summary DISCHARGE DIAGNOSES: Coronavirus pneumonia with hypoxia Acute hypoxic respiratory failure secondary bacterial pneumonia Sepsis Obesity BMI 47.8 URMILA supplemental oxygen at night Sinus tachycardia/palpitations Leukopenia Hypokalemia DISCHARGE MEDICATIONS: See below DISCHARGE INSTRUCTIONS: Primary care physician appointment within 5 days of hospital discharge. Check your pulse oximeter and pulse and blood pressure monitor as needed for hypoxia, and palpitations. Continue with isolation for total of 10 days from diagnosis. HOSPITAL COURSE: A 25-year-old obese male with body mass index (BMI) 48.5, admitted on 06/23/2021 due to complaints of diarrhea, chills, and shortness of breath with dizziness when he stands. Patient was found to be positive for coronavirus and treated with intravenous (IV) remdesivir, Decadron, aspirin, and IVF,Lovenox. CT chest showed bilateral infiltrates with persistent low-grade temperature is 100.4, procalcitonin of 0.5 which increased to 1.14. Patient continued to have worsening respiratory distress tachycardia and near syncope secondary to heart rate of 140-160 sinus, with ambulation from bed to the bathroom with worsening oxygen requirement needing 8 L of oxygen due to oxygen saturation dropping down to 84 to 87% despite 4 L of oxygen via nasal cannula. Repeat imaging study shows decreased ventilation. He was given one dose of Lasix With improved respiratory status but had hypokalemia which was supplemented. Procalcitonin had increased, as well as sedimentation rate and CRP. Patient was started on IV ceftriaxone and IV doxycycline for presumed secondary bacterial And was transitioned to p.o. Levaquin once respiratory status and palpitations stabilized. He had episodes of loose bowel movements but which were solid. He remained afebrile. Inflammatory markers had slightly decreased. Patient was placed on prone positioning. He had improved oxygen saturations when he is laying down in his stomach and was able to titrate his oxygen requirement down to room air saturating 90 -94%. Despite remaining tachycardic with ventricular rate of one 13-1 26 with ambulation patient had no complaints of near syncope lightheadedness or dizziness. He tolerated his diet without nausea vomiting diarrhea abdominal pain or dysgeusia anosmia. Is discharged in stable condition to complete his antibiotics and tapered dose of steroids With outpatient follow-up with his primary care physician and home care referral due to coronavirus pneumonia. DISCHARGE PE: Vitals: see below GENERAL: Laying on his back appears comfortable with no conversational dyspnea currently on room air No use of respiratory accessory muscles awake alert oriented to person place and time HEENT: no jvd moist mm no thyromegaly or jvd no carotid bruit no tracheal deviation No stridor cervical lymphadenopathy no nasal flaring LUNGS: Diminished breath sounds fine crepitations at bilateral bases HEART: S1, S2, sinus tachycardia. No murmurs rubs or gallops nondisplaced point of maximal impulse ABDOMEN: Obese, soft, nontender, nondistended. Positive bowel sounds x4 quadrants difficult to assess for hepatosplenomegaly or abdominal bruit EXTREMITIES: No cyanosis, clubbing, or pitting edema. DISCHARGE LABORATORY DATA: CBC, metabolic panel, microbiology, and imaging studies see chart TIME SPENT ON DISCHARGE: 30 MINUTES Vital Signs/I&Os Vital Signs Date Time Temp Pulse Resp B/P (MAP) Pulse Ox O2 Delivery O2 Flow Rate FiO2 06/29/21 08:57 133 93 Room Air 06/29/21 07:55 97.4 22 145/79 (101) 06/27/21 03:00 2.0 I&O- Last 24 Hours up to 6 AM 06/29/21 06:00 Intake Total 720 ml Output Total 950 ml Balance -230 ml Microbiology Microbiology 06/23/21 Urine Culture - Final, Complete 06/23/21 Blood Culture - Final, Complete NO GROWTH AFTER 5 DAYS 06/23/21 Blood Culture - Final, Complete NO GROWTH AFTER 5 DAYS Discharge Medications Scheduled Albuterol Sulfate (Proventil Hfa) 6.7 Gm Hfa.aer.ad, 2 PUFF INH QID for wheezing Aspirin (Aspirin EC) 81 Mg Tablet.dr, 81 MG PO DAILY L.acidoph/L.bulg/B.bif/S.therm (Yulia-Bid Caplet) 1 Each Tablet, 1 EA PO WM Levofloxacin (Levofloxacin) 750 Mg Tablet, 750 MG PO DAILY@1800 Prednisone (Prednisone) 10 Mg Tablet, 10 MG PO TAPER Take 4 tabs daily x 3 days, then 3 tabs daily x 3 days, then 2 tabs daily x 3 days, then 1 tab daily x 3 days and stop Scheduled PRN Acetaminophen (Acetaminophen) 500 Mg Tablet, 1,000 MG PO Q6H PRN for FEVER, (Reported) Allergies Coded Allergies: No Known Allergies (Unverified , 01/05/21) RANDY WOODARD MD Jun 29, 2021 11:06
== END 2021-06-29 11:05 | disposition home health service (06) | DRG 137 ==
LOC: M ED 08:35 → M ED INP 16:56 → M 4MAIN 20:07
PROVIDERS: ADMIT Family Medicine; ATTEND General Practice
PROC: XW033E5 Introduction of Remdesivir Anti-infective into Peripheral Vein, Percutaneous Approach, New Technology Group 5 (ICD-10-PCS; principal; 2021-06-23)
PROC: 3E0333Z Introduction of Anti-inflammatory into Peripheral Vein, Percutaneous Approach (ICD-10-PCS; 2021-06-23)
DX: U07.1 COVID-19 (principal); J96.01 Acute respiratory failure with hypoxia; J12.82 Pneumonia due to coronavirus disease 2019; J15.9 Unspecified bacterial pneumonia; E86.0 Dehydration; Z68.42 Body mass index [BMI] 45.0-49.9, adult; E66.01 Morbid (severe) obesity due to excess calories; R00.0 Tachycardia, unspecified; D72.819 Decreased white blood cell count, unspecified; R19.7 Diarrhea, unspecified; E87.6 Hypokalemia

== ENCOUNTER → 2021-07-16 | Outpatient (CLI) | payer OTHER ==
[~2021-07-16] MED LIST changes: +ASPI-551 PO; +LEVO750T13 PO; +PRED10TA2 PO; +PROV108A INH; +RISATAB3 PO
[2021-07-16 12:32] LABS: HEMATOCRIT 44.6 % (42.0-52.0); HEMOGLOBIN 14.4 g/dl (13.5-17.5); MEAN CORPUSCULAR HEMOGLOBIN 27.5 pg (27.0-33.0); MEAN CORPUSCULAR HGB CONC 32.3 g/dl (32.0-36.5); MEAN CORPUSCULAR VOLUME 85.1 fl (80.0-96.0); PLATELET COUNT, AUTOMATED 173 10^3/uL (150-450); RED BLOOD COUNT 5.24 10^6/uL (4.30-6.10); WHITE BLOOD COUNT 3.9 10^3/uL (4.0-10.0)
--- NOTE | 2021-07-16 12:57 | REP ---
INDICATION: HTN *LABS 1ST, EKG 2ND, XRY 3RD* COMPARISON: 06/26/2021 TECHNIQUE: PA and lateral. FINDINGS: Subtle patchy perihilar and lower lobe opacities (left greater than right) are significantly improved from prior examination. No new consolidation. No effusion. No pneumothorax. Mediastinum and cardiac silhouette are normal. Skeletal structures are intact. IMPRESSION: Improved aeration to the bilateral lung lowry. <Electronically signed by Roddy Simental > 07/16/21 [id number]
[2021-07-16 13:13] LABS: ALBUMIN 3.2 GM/DL (3.2-5.2); ALT/SGPT 59 U/L (12-78); BILIRUBIN,TOTAL 0.4 MG/DL (0.2-1.0); BLOOD UREA NITROGEN 10 MG/DL (7-18); CALCIUM LEVEL 9.4 MG/DL (8.5-10.1); CARBON DIOXIDE LEVEL 24 MEQ/L (21-32); CHLORIDE LEVEL 112 MEQ/L (98-107); CHOLESTEROL LEVEL 260 MG/DL (<200); CHOLESTEROL RISK RATIO 6.666 (<5); CREATININE FOR GFR 0.78 MG/DL (0.70-1.30); GLOMERULAR FILTRATION RATE > 60.0 (>60); GLUCOSE, FASTING 106 MG/DL (70-100); HDL CHOLESTEROL 39 MG/DL (>40); LDL CHOLESTEROL 194 MG/DL (<100); NON-HDL-C 221 MG/DL; POTASSIUM SERUM 4.1 MEQ/L (3.5-5.1); SODIUM LEVEL 141 MEQ/L (136-145); THYROID STIMULATING HORMONE 0.649 uIU/ML (0.358-3.740); TOTAL 25(OH) VITAMIN D 8.6 NG/ML (30.0-100.0); TOTAL PROTEIN 6.6 GM/DL (6.4-8.2); TRIGLYCERIDES LEVEL 135 MG/DL (<150)
--- NOTE | 2021-07-17 10:06 | ECGEPIP ---
[facility] Test Date: 2021-07-16 Pat Name: NORA ELIZABETH Department: Room: - Gender: Male [employer]: SOFYA : 1995 Requested By: Tabatha Street Order Number: [id number] Reading MD: Alan Covington Measurements Intervals [place] Rate: 98 P: 36 IA: 158 QRS: 0 QRSD: 82 T: 14 QT: 320 QTc: 408 Interpretive Statements Normal sinus rhythm Delayed anterior R wave progression Similar to tracing done 06-25-21 Electronically Signed on 07-17-2021 10:06:19 EDT by Alan Covington
== END ==
LOC: M LAB 11:54
PROVIDERS: ATTEND Family Medicine
DX: R91.8 Other nonspecific abnormal finding of lung field (principal); E03.9 Hypothyroidism, unspecified; I10 Essential (primary) hypertension; Z86.16 Personal history of COVID-19

== ENCOUNTER → 2021-10-27 | Outpatient (REF) ==
[2021-10-27 16:31] LABS: RSV AMPLIFICATION NEGATIVE (NEGATIVE)
== END ==
LOC: M LABSMTC 12:29
PROVIDERS: ATTEND Family Medicine
DX: Z20.822 Contact with and (suspected) exposure to COVID-19 (principal)

== ENCOUNTER → 2021-11-10 | Outpatient (REF) ==
[2021-11-10 16:11] LABS: RSV AMPLIFICATION NEGATIVE (NEGATIVE)
== END ==
LOC: M EMP 15:17
PROVIDERS: ATTEND Family Medicine
DX: Z11.52 Encounter for screening for COVID-19 (principal); Z20.822 Contact with and (suspected) exposure to COVID-19

== ENCOUNTER 2022-03-11 18:50 | Emergency (ER) | payer OTHER ==
[~2022-03-11] VITALS: Ht 185.4 cm; Wt 179.0 kg
[2022-03-11] MEDS ORDERED: LISI10TA22 (19:04)
[2022-03-11] MEDS ORDERED: ERGO500029 (19:04)
[2022-03-11] MEDS ORDERED: SIMV20TA22 (19:04)
[2022-03-11] MEDS ORDERED: ONDANSETRON 4MG ORAL DISINTEGRATING TAB PO ONE (19:55)
[2022-03-11] MEDS ORDERED: NAPROXEN 250 MG TAB PO ONE (19:55)
[2022-03-11 21:05] LABS: BASO % 0.9 % (0.0-1.0); EOS # 0.1 10^3/uL (0.0-0.5); EOS % 1.8 % (0.0-3.0); HEMATOCRIT 48.5 % (42.0-52.0); HEMOGLOBIN 15.9 g/dl (13.5-17.5); LYMPH # 1.4 10^3/uL (1.5-5.0); LYMPH % 31.9 % (24.0-44.0); MEAN CORPUSCULAR HEMOGLOBIN 27.7 pg (27.0-33.0); MEAN CORPUSCULAR HGB CONC 32.8 g/dl (32.0-36.5); MEAN CORPUSCULAR VOLUME 84.5 fl (80.0-96.0); MONO # 0.6 10^3/uL (0.0-0.8); MONO % 13.4 % (2.0-8.0); NEUTROPHILS # 2.2 10^3/uL (1.5-8.5); NEUTROPHILS % 51.8 % (36.0-66.0); PLATELET COUNT, AUTOMATED 203 10^3/uL (150-450); RED BLOOD COUNT 5.74 10^6/uL (4.30-6.10); WHITE BLOOD COUNT 4.3 10^3/uL (4.0-10.0)
[2022-03-11] MEDS ORDERED: NS 1,000 ML IV ONE (21:35)
[2022-03-11 22:07] LABS: BLOOD UREA NITROGEN 11 MG/DL (7-18); CALCIUM LEVEL 8.9 MG/DL (8.5-10.1); CARBON DIOXIDE LEVEL 27 MEQ/L (21-32); CHLORIDE LEVEL 109 MEQ/L (98-107); CREATININE FOR GFR 1.19 MG/DL (0.70-1.30); GLOMERULAR FILTRATION RATE > 60.0 (>60); GLUCOSE, FASTING 88 MG/DL (70-100); POTASSIUM SERUM 3.9 MEQ/L (3.5-5.1); SODIUM LEVEL 140 MEQ/L (136-145)
[2022-03-11] MEDS ORDERED: ONDA4TAB6 PO (22:38)
[2022-03-11] MEDS ORDERED: NAPR-885 PO (22:38)
[2022-03-11 22:58] VITALS: BP 155/90
== END 2022-03-11 22:42 | disposition home or self-care (01) ==
LOC: M ED 18:50
DX: R11.10 Vomiting, unspecified (principal); R05.9 Cough, unspecified; J02.9 Acute pharyngitis, unspecified; R07.9 Chest pain, unspecified; B34.0 Adenovirus infection, unspecified; I10 Essential (primary) hypertension; E66.9 Obesity, unspecified; Z79.899 Other long term (current) drug therapy

== ENCOUNTER → 2022-07-17 | Outpatient (CLI) | payer OTHER ==
[~2022-07-17] MED LIST changes: +ERGO500029; +LEVO1TAB40 PO; -LEVO750T13 PO; +LISI10TA22; +NAPR-885 PO; +ONDA4TAB6 PO; +SIMV20TA22
[2022-07-17 10:45] LABS: HEMATOCRIT 46.2 % (42.0-52.0); HEMOGLOBIN 14.9 g/dl (13.5-17.5); MEAN CORPUSCULAR HEMOGLOBIN 27.1 pg (27.0-33.0); MEAN CORPUSCULAR HGB CONC 32.3 g/dl (32.0-36.5); MEAN CORPUSCULAR VOLUME 84.2 fl (80.0-96.0); PLATELET COUNT, AUTOMATED 208 10^3/uL (150-450); RED BLOOD COUNT 5.49 10^6/uL (4.30-6.10); WHITE BLOOD COUNT 5.1 10^3/uL (4.0-10.0)
[2022-07-17 11:04] LABS: HEMOGLOBIN A1c 6.7 %
[2022-07-17 11:26] LABS: ALBUMIN 3.9 GM/DL (3.2-5.2); ALT/SGPT 55 U/L (12-78); BILIRUBIN,TOTAL 0.4 MG/DL (0.2-1.0); BLOOD UREA NITROGEN 12 MG/DL (7-18); CALCIUM LEVEL 9.5 MG/DL (8.5-10.1); CARBON DIOXIDE LEVEL 25 MEQ/L (21-32); CHLORIDE LEVEL 107 MEQ/L (98-107); CHOLESTEROL LEVEL 220 MG/DL (<200); CHOLESTEROL RISK RATIO 5.641 (<5); GLOMERULAR FILTRATION RATE > 60.0 (>60); GLUCOSE, FASTING 123 MG/DL (70-100); HDL CHOLESTEROL 39 MG/DL (>40); LDL CHOLESTEROL 154 MG/DL (<100); NON-HDL-C 181 MG/DL; POTASSIUM SERUM 4.1 MEQ/L (3.5-5.1); PROSTATIC SPECIFIC AG MONITOR 0.39 NG/ML (< 4.00); SODIUM LEVEL 138 MEQ/L (136-145); TOTAL PROTEIN 7.4 GM/DL (6.4-8.2); TRIGLYCERIDES LEVEL 133 MG/DL (<150)
[2022-07-17 11:55] LABS: TESTOSTERONE 180 NG/DL (241-827)
== END ==
LOC: M RAD 09:50
PROVIDERS: ATTEND Family Medicine
DX: R53.83 Other fatigue (principal); I10 Essential (primary) hypertension; E03.9 Hypothyroidism, unspecified

== ENCOUNTER → 2022-09-19 | Outpatient (REF) | payer OTHER ==
[~2022-09-19] MED LIST changes: +ALBU6.7H6 INH; -PROV108A INH
== END ==
LOC: M LAB REF 19:27
PROVIDERS: ATTEND Physician Assistant Medical
DX: R50.9 Fever, unspecified (principal); R05.9 Cough, unspecified; R53.83 Other fatigue; R09.81 Nasal congestion

== ENCOUNTER → 2022-10-20 | Outpatient (REF) | payer OTHER | LOC: M LAB REF 08:09 | PROVIDERS: ATTEND Physician Assistant Medical | DX: R05.9 Cough, unspecified (principal) ==

== ENCOUNTER → 2023-07-16 | Outpatient (CLI) | payer OTHER ==
[2023-07-16 14:06] LABS: HEMATOCRIT 47.3 % (42.0-52.0); HEMOGLOBIN 15.3 g/dl (13.5-17.5); MEAN CORPUSCULAR HEMOGLOBIN 27.6 pg (27.0-33.0); MEAN CORPUSCULAR HGB CONC 32.3 g/dl (32.0-36.5); MEAN CORPUSCULAR VOLUME 85.2 fl (80.0-96.0); PLATELET COUNT, AUTOMATED 204 10^3/uL (150-450); RED BLOOD COUNT 5.55 10^6/uL (4.30-6.10)
[2023-07-16 14:19] LABS: HEMOGLOBIN A1c 6.7 % (4.0-6.0)
[2023-07-16 14:34] LABS: ALBUMIN 3.7 G/DL (3.2-5.2); ALKALINE PHOSPHATASE 68 U/L (46-116); ALT/SGPT 40 U/L (7.0-40); AST/SGOT 19 U/L (<34); BILIRUBIN,TOTAL 0.6 MG/DL (0.3-1.2); BLOOD UREA NITROGEN 10 MG/DL (9-23); CALCIUM LEVEL 9.3 MG/DL (8.5-10.1); CARBON DIOXIDE LEVEL 26 MMOL/L (20-31); CHLORIDE LEVEL 109 MMOL/L (98-107); CHOLESTEROL LEVEL 224 MG/DL (<200); CHOLESTEROL RISK RATIO 5.72 (<5); CREATININE FOR GFR 0.86 MG/DL (0.70-1.30); GLOMERULAR FILTRATION RATE > 60.0 (>60); GLUCOSE, FASTING 96 MG/DL (60-100); HDL CHOLESTEROL 39.1 MG/DL (>40); LDL CHOLESTEROL 162.5 MG/DL (<100); NON-HDL-C 184.9 MG/DL; POTASSIUM SERUM 4.3 MMOL/L (3.5-5.1); SODIUM LEVEL 144 MMOL/L (136-145); TOTAL PROTEIN 7.1 G/DL (5.7-8.2); TRIGLYCERIDES LEVEL 112 MG/DL (<150)
[2023-07-16 14:35] LABS: THYROID STIMULATING HORMONE 0.917 uIU/ML (0.55-4.78)
[2023-07-16 14:36] LABS: TESTOSTERONE 287 NG/DL (241-827); TOTAL 25(OH) VITAMIN D 10.7 NG/ML (20.0-100.0)
== END ==
LOC: M RAD 12:01
PROVIDERS: ATTEND Family Medicine
DX: I10 Essential (primary) hypertension (principal); R53.83 Other fatigue; E03.9 Hypothyroidism, unspecified

== ENCOUNTER → 2024-06-07 | Outpatient (CLI) | payer OTHER ==
[~2024-06-07] MED LIST changes: +ONDA-282 PO; -ONDA4TAB6 PO
[2024-06-07 11:43] LABS: HEMATOCRIT 49.6 % (42.0-52.0); MEAN CORPUSCULAR HEMOGLOBIN 27.9 pg (27.0-33.0); MEAN CORPUSCULAR HGB CONC 32.3 g/dl (32.0-36.5); MEAN CORPUSCULAR VOLUME 86.6 fl (80.0-96.0); PLATELET COUNT, AUTOMATED 186 10^3/uL (150-450); RED BLOOD COUNT 5.73 10^6/uL (4.30-6.10)
[2024-06-07 11:55] LABS: HEMOGLOBIN A1c 7.8 % (4.0-6.0)
[2024-06-07 12:11] LABS: PROSTATIC SPECIFIC AG MONITOR 0.24 NG/ML (< 4.00)
[2024-06-07 12:15] LABS: THYROID STIMULATING HORMONE 1.655 uIU/ML (0.55-4.78)
[2024-06-07 12:16] LABS: ALBUMIN 3.8 G/DL (3.2-5.2); ALKALINE PHOSPHATASE 74 U/L (46-116); ALT/SGPT 56 U/L (7.0-40); AST/SGOT 22 U/L (<34); BILIRUBIN,TOTAL 0.6 MG/DL (0.3-1.2); BLOOD UREA NITROGEN 10 MG/DL (9-23); CALCIUM LEVEL 9.7 MG/DL (8.5-10.1); CARBON DIOXIDE LEVEL 30 MMOL/L (20-31); CHLORIDE LEVEL 107 MMOL/L (98-107); CHOLESTEROL LEVEL 234 MG/DL (<200); CHOLESTEROL RISK RATIO 6.39 (<5); GLOMERULAR FILTRATION RATE > 60.0 (>60); GLUCOSE, FASTING 158 MG/DL (60-100); HDL CHOLESTEROL 36.6 MG/DL (>40); NON-HDL-C 197.4 MG/DL; POTASSIUM SERUM 4.8 MMOL/L (3.5-5.1); SODIUM LEVEL 142 MMOL/L (136-145); TOTAL PROTEIN 7.2 G/DL (5.7-8.2); TRIGLYCERIDES LEVEL 162 MG/DL (<150)
[2024-06-07 12:17] LABS: TESTOSTERONE 171 NG/DL (241-827)
== END ==
LOC: M LAB 10:49
PROVIDERS: ATTEND Family Medicine
DX: I10 Essential (primary) hypertension (principal); R53.83 Other fatigue; E03.9 Hypothyroidism, unspecified

== ENCOUNTER → 2024-12-18 | Outpatient (CLI) | payer OTHER | LOC: M WUC 09:34 | PROVIDERS: ATTEND Student in an Organized Health Care Education/Training Program | DX: M25.562 Pain in left knee (principal); M17.12 Unilateral primary osteoarthritis, left knee; Z98.890 Other specified postprocedural states; M11.262 Other chondrocalcinosis, left knee ==

== ENCOUNTER → 2024-12-29 | Outpatient (CLI) | payer OTHER | LOC: M SLEEP HO 09:47 | PROVIDERS: ATTEND Nurse Practitioner Adult Health | DX: G47.33 Obstructive sleep apnea (adult) (pediatric) (principal) ==

== ENCOUNTER → 2025-01-26 | Outpatient (CLI) | payer OTHER ==
[~2025-01-26] MED LIST changes: +GLIP5TAB17 PO; +METF500T13
[2025-01-26 12:46] LABS: HEMATOCRIT 46.8 % (42.0-52.0); HEMOGLOBIN 15.7 g/dl (13.5-17.5); MEAN CORPUSCULAR HEMOGLOBIN 27.6 pg (27.0-33.0); MEAN CORPUSCULAR HGB CONC 33.5 g/dl (32.0-36.5); MEAN CORPUSCULAR VOLUME 82.4 fl (80.0-96.0); PLATELET COUNT, AUTOMATED 183 10^3/uL (150-450); RED BLOOD COUNT 5.68 10^6/uL (4.30-6.10); WHITE BLOOD COUNT 5.3 10^3/uL (4.0-10.0)
[2025-01-26 13:11] LABS: THYROID STIMULATING HORMONE 1.487 uIU/ML (0.55-4.78); TOTAL 25(OH) VITAMIN D 32.4 NG/ML (20.0-100.0)
[2025-01-26 13:13] LABS: TESTOSTERONE 106 NG/DL (241-827)
[2025-01-26 13:15] LABS: HEMOGLOBIN A1c 12.8 % (4.0-6.0)
[2025-01-26 13:31] LABS: ALKALINE PHOSPHATASE 86 U/L (40-129); ALT/SGPT 60 U/L (7.0-40); AST/SGOT 28 U/L (<34); BILIRUBIN,TOTAL 0.6 MG/DL (0.3-1.2); BLOOD UREA NITROGEN 10 MG/DL (9-23); CALCIUM LEVEL 9.1 MG/DL (8.5-10.1); CARBON DIOXIDE LEVEL 18 MMOL/L (20-31); CHLORIDE LEVEL 102 MMOL/L (98-107); CHOLESTEROL LEVEL 216 MG/DL (<200); CHOLESTEROL RISK RATIO 6.18 (<5); GLOMERULAR FILTRATION RATE > 60.0 (>60); GLUCOSE, FASTING 440 MG/DL (60-100); HDL CHOLESTEROL 34.9 MG/DL (>40); LDL CHOLESTEROL 150.7 MG/DL (<100); NON-HDL-C 181.1 MG/DL; POTASSIUM SERUM 4.7 MMOL/L (3.5-5.1); SODIUM LEVEL 135 MMOL/L (136-145); TRIGLYCERIDES LEVEL 152 MG/DL (<150)
== END ==
LOC: M LAB 10:45
PROVIDERS: ATTEND Family Medicine
DX: I10 Essential (primary) hypertension (principal); R53.83 Other fatigue; E11.9 Type 2 diabetes mellitus without complications

== ENCOUNTER 2025-01-27 18:43 | Emergency (ER) | payer OTHER ==
[~2025-01-27] VITALS: Ht 185.4 cm; Wt 176.4 kg
[~2025-01-27 18:43] MED LIST changes: -GLIP5TAB17 PO; -METF500T13
[2025-01-27] MEDS ORDERED: METF500T13 (18:58)
[2025-01-27] MEDS: NS (Normal Saline) 0.9% 1,000 ML IV ONE (20:02)
[2025-01-27 20:07] LABS: VENOUS BASE EXCESS -4.7 (-2.0-2.0); VENOUS HCO3 19.6 MMOL/L (23.0-27.0); VENOUS O2 SATURATION 95.7 % (60.0-80.0); VENOUS PARTIAL PRESSURE CO2 34.3 mmHg (38.0-50.0); VENOUS PARTIAL PRESSURE O2 78.8 mmHg (30.0-50.0); VENOUS PH 7.374 UNITS (7.330-7.430); VENOUS STANDARD HCO3 20.6 MMOL/L; VENOUS TOTAL CO2 20.6 MMOL/L (24.0-28.0)
[2025-01-27 20:18] LABS: BASO # 0.1 10^3/uL (0.0-0.2); BASO % 0.7 % (0.0-1.0); EOS # 0.1 10^3/uL (0.0-0.5); EOS % 1.9 % (0.0-3.0); HEMATOCRIT 45.2 % (42.0-52.0); HEMOGLOBIN 15.1 g/dl (13.5-17.5); LYMPH # 2.1 10^3/uL (1.5-5.0); LYMPH % 30.9 % (24.0-44.0); MEAN CORPUSCULAR HEMOGLOBIN 27.8 pg (27.0-33.0); MEAN CORPUSCULAR HGB CONC 33.4 g/dl (32.0-36.5); MEAN CORPUSCULAR VOLUME 83.1 fl (80.0-96.0); MONO # 0.7 10^3/uL (0.0-0.8); MONO % 9.7 % (2.0-8.0); NEUTROPHILS # 3.8 10^3/uL (1.5-8.5); NEUTROPHILS % 56.7 % (36.0-66.0); PLATELET COUNT, AUTOMATED 169 10^3/uL (150-450); RED BLOOD COUNT 5.44 10^6/uL (4.30-6.10); WHITE BLOOD COUNT 6.8 10^3/uL (4.0-10.0)
[2025-01-27 20:46] LABS: KETONE, URINE AUTO RFX 1+ mg/dL (NEGATIVE); LEUKOCYTE ESTERASE UR AUTO RFX NEGATIVE (NEGATIVE); NITRITE, URINE AUTO RFX NEGATIVE (NEGATIVE); RBC, URINE AUTO RFX 0 /HPF (0-3); SQUAM EPITHELIAL CELL UR AURFX 0 /HPF (0-6); WBC, URINE AUTO RFX 2 /HPF (0-3)
[2025-01-27 21:34] LABS: BLOOD UREA NITROGEN 9 MG/DL (9-23); CALCIUM LEVEL 8.9 MG/DL (8.5-10.1); CARBON DIOXIDE LEVEL 19 MMOL/L (20-31); CHLORIDE LEVEL 100 MMOL/L (98-107); CREATININE FOR GFR 0.72 MG/DL (0.70-1.30); GLOMERULAR FILTRATION RATE > 60.0 (>60); GLUCOSE, FASTING 582 MG/DL (60-100); POTASSIUM SERUM 5.2 MMOL/L (3.5-5.1); SODIUM LEVEL 133 MMOL/L (136-145)
[2025-01-27 21:39] LABS: OSMOLALITY SERUM 308 MOSM/KG (275-295)
[2025-01-27] MEDS ORDERED: GLIP5TAB17 PO (22:14)
[2025-01-27] MEDS: HumuLIN R (REGULAR) INSULIN (NovoLIN R) **100U/ML** PER UNIT IV ONE (22:37)
[2025-01-27] MEDS: glipiZIDE (GLUCOTROL) 5 MG TAB PO ONE (22:57)
[2025-01-27 23:30] VITALS: BP 146/99; TEMP 97; O2SAT 95
== END 2025-01-27 23:37 | disposition home or self-care (01) ==
LOC: M ED 18:43
DX: E11.65 Type 2 diabetes mellitus with hyperglycemia (principal); B34.1 Enterovirus infection, unspecified; R00.0 Tachycardia, unspecified; I25.2 Old myocardial infarction; I10 Essential (primary) hypertension; E78.5 Hyperlipidemia, unspecified; Z79.84 Long term (current) use of oral hypoglycemic drugs; Z79.899 Other long term (current) drug therapy
CPT/HCPCS: 80048; 81001; 82010; 82803; 83930; 85025; 87486; 87581; 87633; 87798; 93005; 93041; 96374; 99285; J1815

== ENCOUNTER → 2025-04-09 | Outpatient (CLI) | payer OTHER ==
[~2025-04-09] MED LIST changes: +GLIP5TAB17 PO; +METF500T13
== END ==
LOC: M SLEEP 20:00
PROVIDERS: ATTEND Nurse Practitioner Adult Health
DX: G47.33 Obstructive sleep apnea (adult) (pediatric) (principal)

== ENCOUNTER 2025-10-13 15:36 | Emergency (ER) | payer OTHER ==
[~2025-10-13] VITALS: Ht 188 cm; Wt 181.6 kg
[~2025-10-13 15:36] MED LIST changes: -ERGO500029; +ERGO500029 PO; +GLIP-320 PO; -LISI10TA22; +LISI10TA22 PO; -METF500T13; +METF500T13 PO; +OXYC1TAB23 PO; +PHEN30CA21 PO; -SIMV20TA22; +SIMV20TA22 PO; +[UNRECOGNIZED DRUG - CODE] PO
[2025-10-13 16:13] LABS: VENOUS BASE EXCESS -1.5 (-2.0-2.0); VENOUS HCO3 23.8 MMOL/L (23.0-27.0); VENOUS O2 SATURATION 93.0 % (60.0-80.0); VENOUS PARTIAL PRESSURE CO2 42.2 mmHg (38.0-50.0); VENOUS PARTIAL PRESSURE O2 66.3 mmHg (30.0-50.0); VENOUS PH 7.369 UNITS (7.330-7.430); VENOUS STANDARD HCO3 23.1 MMOL/L; VENOUS TOTAL CO2 25.1 MMOL/L (24.0-28.0)
[2025-10-13 16:19] LABS: BASO # 0.0 10^3/uL (0.0-0.2); BASO % 0.8 % (0.0-1.0); EOS # 0.1 10^3/uL (0.0-0.5); EOS % 2.5 % (0.0-3.0); LYMPH # 2.2 10^3/uL (1.5-5.0); LYMPH % 46.7 % (24.0-44.0); MONO # 0.4 10^3/uL (0.0-0.8); MONO % 8.1 % (2.0-8.0); NEUTROPHILS # 2.0 10^3/uL (1.5-8.5); NEUTROPHILS % 41.7 % (36.0-66.0); PLATELET COUNT, AUTOMATED 196 10^3/uL (150-450)
[2025-10-13 16:24] LABS: ALT/SGPT 50 U/L (7.0-40); AST/SGOT 28 U/L (<34)
[2025-10-13 16:26] LABS: ACETONE/KETONE 0.25 MMOL/L (0.02-0.27)
[2025-10-13 16:27] LABS: OSMOLALITY SERUM 300 MOSM/KG (275-295)
[2025-10-13] MEDS: NS (Normal Saline) 0.9% 1,000 ML IV ONE (16:28)
[2025-10-13 16:42] LABS: ESTIMATED AVERAGE GLUCOSE 301.0 MG/DL (60-110)
[2025-10-13 16:50] LABS: CALCIUM LEVEL 9.0 MG/DL (8.5-10.1); CARBON DIOXIDE LEVEL 24 MMOL/L (20-31); CHLORIDE LEVEL 101 MMOL/L (98-107); CREATININE FOR GFR 0.75 MG/DL (0.70-1.30); GLOMERULAR FILTRATION RATE > 90.0 (>60); POTASSIUM SERUM 4.2 MMOL/L (3.5-5.1); SODIUM LEVEL 136 MMOL/L (136-145)
[2025-10-13] MEDS: HumuLIN R (REGULAR) INSULIN (NovoLIN R) **100 U/ML** PER UNIT IV ONE (17:21)
[2025-10-13] MEDS ORDERED: BLOO-259 MC (18:50)
[2025-10-13] MEDS ORDERED: BD P31MI2 SC (18:50)
[2025-10-13] MEDS ORDERED: FLAS1KIT2 MC (18:50)
[2025-10-13] MEDS ORDERED: LANTINJ4 SC (18:50)
[2025-10-13 19:00] VITALS: BP 119/64; TEMP 98; O2SAT 94
== END 2025-10-13 19:14 | disposition home or self-care (01) ==
LOC: EDBD 15:36 → M ED 15:36
DX: E11.65 Type 2 diabetes mellitus with hyperglycemia (principal); I10 Essential (primary) hypertension; E78.5 Hyperlipidemia, unspecified; Z79.4 Long term (current) use of insulin; Z79.899 Other long term (current) drug therapy
CPT/HCPCS: 80048; 80076; 82010; 82803; 83036; 83690; 83930; 85025; 96374; 99284; J1815